=== PATIENT | female | born 1975 | race Two or more races ===

== ENCOUNTER 2017-11-10 15:21 | Emergency (ER) | payer OTHER ==
--- NOTE | 2017-11-10 16:36 | ED Physician Documentation ---
PD HPI HEENT - Stated complaint Stated Complaint: DIZZINESS - Chief complaint Chief Complaint: Neuro - History obtained from History obtained from: Patient - History of Present Illness Timing - onset: How many days ago Timing - duration: Days Timing - details: Gradual onset, Still present, Waxing and waning Location: Other (vertigo, with head movement.) Associated symptoms: Congestion. No: Fever, Unable to swallow, Cough Similar symptoms before: Diagnosis (has had verrtigo at times, improves with yon maneuvers. Not helping this time and more consistent than prior episodes.) Review of Systems Constitutional: denies: Fever Eyes: denies: Loss of vision, Decreased vision Ears: denies: Loss of hearing, Ear pain, Tinnitus/ringing Nose: reports: Congestion Throat: denies: Sore throat Respiratory: denies: Cough PD PAST MEDICAL HISTORY - Past Medical History Past Medical History: No - Past Surgical History Past Surgical History: Yes - Present Medications Home Medications: Ambulatory Orders Medication Instructions Recorded Confirmed Cetirizine [ZyrTEC] 10 mg PO DAILY #20 tablet 11/10/17 Dexamethasone [Decadron] 4 mg PO DAILY #5 tablet 11/10/17 Meclizine [Antivert] 25 mg PO Q6H PRN #30 tablet 11/10/17 Tramadol HCl 50 mg PO Q6H PRN #15 tablet 11/10/17 - Allergies Allergies/Adverse Reactions: Allergies Allergy/AdvReac Type Severity Reaction Status Date / Time Sulfa (Sulfonamide Allergy Hives Verified 11/10/17 15:29 Antibiotics) - Social History Does the pt smoke?: No Smoking Status: Never smoker Does the pt have substance abuse?: No - Immunizations Immunizations are current?: Yes PD ED PE NORMAL - Vitals Vital signs reviewed: Yes - General General: Alert and oriented X 3, No acute distress, Well developed/nourished - HEENT HEENT: PERRL, EOMI (with nystagmus to the right), Ears normal, Pharynx benign - Neck Neck: Supple, no meningeal sign, No adenopathy - Cardiac Cardiac: RRR, No murmur - Respiratory Respiratory: Clear bilaterally - Derm Derm: Normal color, Warm and dry - Extremities Extremities: No tenderness to palpate, Normal ROM s pain - Neuro Neuro: Alert and oriented X 3, autism specialist 2-12 intact, No motor deficit, No sensory deficit, Normal speech, Other Eye Opening: Spontaneous Motor: Obeys Commands Verbal: Oriented GCS Score: 15 - Psych Psych: Normal mood Results - Vitals Vitals: Oxygen O2 Source Room air PD MEDICAL DECISION MAKING - ED course Complexity details: considered differential (symptoms c/w peripheral vertigo. consider inflammation or viral given recent plane travel. ), d/w patient Departure - Departure Disposition: 01 Home, Self Care Clinical Impression: Vertigo Condition: Stable Record reviewed to determine appropriate education?: Yes Instructions: ED Vertigo Unspecified Follow-Up: Tanner Higginbotham DO [Primary Care Provider] - Prescriptions: Cetirizine [ZyrTEC] 10 mg PO DAILY #20 tablet Dexamethasone [Decadron] 4 mg PO DAILY #5 tablet Meclizine [Antivert] 25 mg PO Q6H PRN #30 tablet PRN Reason: Vertigo Tramadol HCl 50 mg PO Q6H PRN #15 tablet PRN Reason: Pain Comments: This vertigo sound like it is originating from the inner ear. Use meclizine every 6 hours if needed for dizziness. Decadron daily for 5 more days for presumed inflammation. Given the recent travel, there may be some congestion or fluid buildup and so use cetirizine daily for 7-10 days which is an antihistamine. Add Tylenol or tramadol if needed for headache. Recheck with your primary care if not improved over the next 2-3 days. Discharge Date/Time: 11/10/17 17:35
[2017-11-10] MEDS ORDERED: MECLIZINE 12.5 MG TABLET PO STA (17:07)
[2017-11-10] MEDS ORDERED: CETIRIZINE 10 MG TABLET PO STA (17:07)
[2017-11-10] MEDS ORDERED: DEXAMETHASONE 10 MG/ML VIAL PO STA (17:07)
[2017-11-10] MEDS ORDERED: ACETAMINOPHEN 325 MG TABLET PO STA (17:11)
[2017-11-10 17:38] VITALS: BP 125/90
== END 2017-11-10 17:35 | disposition home or self-care (01) ==
LOC: ED 15:21
DX: R42 Dizziness and giddiness (principal)
CPT/HCPCS: 99283; A9270

== ENCOUNTER 2019-11-10 16:15 | Emergency (ER) | payer OTHER ==
[2019-11-10 16:28] VITALS: BP 119/92
--- NOTE | 2019-11-10 19:22 | ED Physician Documentation ---
History of Present Illness - Stated complaint Stated Complaint: BILAT EYE IRRITATION, COUGH - Chief complaint Chief Complaint: Heent - History obtained from History obtained from: Patient - History of Present Illness Timing: How many days ago (4) - Additonal information Additional information: Patient comes emergency department complaining of upper respiratory type symptoms which have been going on for about the last 4 days. She states for the last couple of days, she has noticed conjunctival injection with mucus type discharge. She denies fevers or chills. No visual changes. No chest pain or shortness of breath. No sore throat. No body aches. No abdominal pain, nausea, vomiting, or diarrhea. No other complaints at this time. Review of Systems Ten Systems: 10 systems reviewed and negative Constitutional: reports: Reviewed and negative Eyes: reports: Discharge, Irritation Ears: reports: Reviewed and negative Nose: reports: Rhinorrhea / runny nose, Congestion, Reviewed and negative Throat: reports: Reviewed and negative Cardiac: reports: Reviewed and negative Respiratory: reports: Cough GI: reports: Reviewed and negative : reports: Reviewed and negative Skin: reports: Reviewed and negative Musculoskeletal: reports: Reviewed and negative Neurologic: reports: Reviewed and negative Psychiatric: reports: Reviewed and negative Endocrine: reports: Reviewed and negative Immunocompromised: reports: Reviewed and negative PD PAST MEDICAL HISTORY - Past Medical History Past Medical History: No - Past Surgical History Past Surgical History: Yes /MEDICAID SPECIALIST: section - Present Medications Home Medications: Ambulatory Orders Medication Instructions Recorded Confirmed Gentamicin 0.3% Ophth Drops 1 drops OPTH BID 7 Days #7 bottle 11/10/19 [Garamycin] - Allergies Allergies/Adverse Reactions: Allergies Allergy/AdvReac Type Severity Reaction Status Date / Time Sulfa (Sulfonamide Allergy Hives Verified 11/10/19 16:28 Antibiotics) - Social History Does the pt smoke?: No Smoking Status: Never smoker Does the pt drink ETOH?: Yes ETOH Use: Wine Does the pt have substance abuse?: No - Immunizations Immunizations are current?: Yes - POLST Patient has POLST: No PD ED PE NORMAL - Vitals Vital signs reviewed: Yes - General General: Alert and oriented X 3, No acute distress - HEENT HEENT: PERRL, EOMI, Other (Patient has moderate conjunctival injection bilaterally with a mild amount of mucopurulent discharge.) - Neck Neck: Supple, no meningeal sign - Cardiac Cardiac: RRR, No murmur - Respiratory Respiratory: Clear bilaterally - Abdomen Abdomen: Soft, Non tender, Non distended - Derm Derm: Warm and dry - Extremities Extremities: No deformity - Neuro Neuro: Alert and oriented X 3 - Psych Psych: Normal mood, Normal affect Results - Vitals Vitals: Vital Signs - 24 hr 11/10/19 16:26 Temperature 36.7 C Heart Rate 86 Respiratory 18 Rate Blood Pressure 119/92 H O2 Saturation 99 Oxygen O2 Source Room air PD MEDICAL DECISION MAKING - ED course Complexity details: considered differential, d/w patient ED course: Patient was well-appearing overall. I did prescribe her topical ophthalmic antibiotic drops. We have discussed home management and symptoms, as well as the usual indications for return. She does not wear contact lenses. Departure - Departure Disposition: 01 Home, Self Care Clinical Impression: Upper respiratory infection Qualifiers: URI type: unspecified viral URI Qualified Code(s): J06.9 - Acute upper respiratory infection, unspecified Conjunctivitis Qualifiers: Conjunctivitis type: acute Acute conjunctivitis type: viral Laterality: bilateral Qualified Code(s): B30.9 - Viral conjunctivitis, unspecified Condition: Fair Instructions: ED Conjunctivitis Nonspecific, ED URI Viral Prescriptions: Gentamicin 0.3% Ophth Drops [Garamycin] 1 drops OPTH BID 7 Days #7 bottle Discharge Date/Time: 11/10/19 18:25
== END 2019-11-10 18:25 | disposition home or self-care (01) ==
LOC: ED 16:15
DX: J06.9 Acute upper respiratory infection, unspecified (principal); B30.9 Viral conjunctivitis, unspecified
CPT/HCPCS: 99282; 99284